=== PATIENT | male | born 1940 | race Caucasian/White ===

== ENCOUNTER 2016-06-12 09:30 | Emergency (ER) | payer MEDICARE, OTHER ==
[~2016-06-12 09:30] MED LIST: APIX5TAB PO; BUME1TAB26 PO; DIGO0.25 PO; DILT1CAP9; FERR325T PO; FLUT1INH INH; GLIP5TAB8 PO; IPRA1POW8 NEB; LEVA750T PO; LEVEMIR SQ; LEVO25TA4 PO; LORA-392 PO; LOSA25TA PO; MULT-135 PO; NEUR300C PO; NOVOLOGP2 SQ; PENT400T19 PO; POTA-243 PO; PRED10PA2 PO; TAMS0.4C4 PO; ZOCO40TA PO
--- NOTE | 2016-06-12 10:05 | PD ---
HPI Chief Complaint: cardiac arrest Time Seen by Provider: 09:49 Travel History International Travel<30 days: No Contact w/Intl Traveler<30days: No Traveled to known affect area: No History of Present Illness HPI 75-year-old male came to the emergency room brought by EMS after a witnessed arrest in front of the paramedics. As per the paramedics patient was on the toilet when he was not feeling good. His called 911 thinking he might be having a stroke. When the fire department arrived patient was sitting on the toilet and said he wasn't feeling well. He appeared very pale and diaphoretic. Soon after he collapsed and lost his pulse in front of the fire paramedics. They initiated CPR and intubated him with a Combitube. Patient has received 3 rounds of epinephrine prior to coming to the ER. As per them patient continued to be in PEA with no pulse. Patient has significant medical problems including heart issues. He brought his medication list which contains at least 20 pills which include diabetic medications heart medications and blood pressure pills. As per the he has been sick lately. Patient obviously was unable to give any history. All the history was obtained from the paramedics. There was no family member available when the patient arrived. Patient lost his pulse at 9: 05 AM as per the paramedics. His blood sugar as per the paramedics was 129. 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) Diabetes: Yes Diminished Hearing: No Endocrine: Yes Gastrointestinal Disorders: Yes GERD: No Glaucoma: No Genitourinary: No Headaches: Yes Hepatitis: No Hiatal Hernia: No Hypertension: Yes Immune Disorder: No Implanted Vascular Access Dvce: Yes Kidney Stones: No Musculoskeletal: Yes Neurologic: Yes Psychiatric: No Reproductive: No Respiratory: Yes Immunizations Current: Yes Migraines: Yes Myocardial Infarction: No Renal Failure: No Seizures: No Sickle Cell Disease: No Sleep Apnea: No Thyroid Disease: Yes Ulcer: No Past Surgical History Abdominal Surgery: Yes (CHOLECYSTECTOMY) AICD: No Appendectomy: No Arteriovenous Shunt: No Cardiac Surgery: Yes (PACEMAKER ) Cholecystectomy: Yes Ear Surgery: No Endocrine Surgery: No Eye Surgery: Yes (CATARACT REMOVAL BOTH EYES) Genitourinary Surgery: No Gynecologic Surgery: No Insulin Pump: No Joint Replacement: Yes (RIGHT KNEE, RT HIP) Oral Surgery: No 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 Reported Meds & Prescriptions Reported Meds & Active Scripts Active Novolog Inj (Insulin Aspart) 1,000 Unit/10 Ml Vial 12 Units SQ TIDAC 30 Days Levemir Inj (Insulin Detemir) 1,000 unit/ 10 ML Vial 45 Units SQ HS 30 Days Do not mix with any other Insulin. Prednisone (48) 10 mg tab Dose Pack (Prednisone) 10 Mg Dspk 10 Mg PO DIRECTED Ativan (Lorazepam) 0.5 Mg Tab 0.5 Mg PO Q8H PRN 30 Days Levaquin (Levofloxacin) 750 Mg Tab 750 Mg PO DAILY 5 Days Eliquis (Apixaban) 5 Mg Tab 5 Mg PO BID 30 Days Reported Ferrous Sulfate 325 Mg Tab 325 Mg PO DAILY Levothyroxine (Levothyroxine Sodium) 25 Mcg Tab 25 Mcg PO DAILY Diltiazem HCl (Diltiazem HCl Extended Release) Unknown Strength Cap Unknown Dose Glipizide 5 Mg Tab 5 Mg PO DAILY Take 30 minutes before a meal Losartan (Losartan Potassium) 25 Mg Tab 25 Mg PO DAILY Zocor (Simvastatin) 40 Mg Tab 40 Mg PO HS Neurontin (Gabapentin) 300 Mg Cap 300 Mg PO HS Klor-Con 10 (Potassium Chloride) 10 Meq Tab 10 Meq PO DAILY Digoxin 0.25 Mg Tab 0.25 Mg PO DAILY Breo Ellipta Inh (Fluticasone/Vilanterol) 100-25 Mcg/Act Inh 1 Puff INH Q12HR Use daily at the same time. Tamsulosin (Tamsulosin HCl) 0.4 Mg Cap 0.4 Mg PO HS Pentoxifylline CR (Pentoxifylline) 400 Mg Tab 400 Mg PO DAILY Multi Vitamin (Multiple Vitamin) 1 Tab Tab 1 Tab PO DAILY Ipratropium [place] 1 Pow Pow 1 Vial NEB Q6HR PRN Bumex (Bumetanide) 1 Mg Tab 1 Mg PO DAILY Narrative Medication List of his home medications reviewed from the nursing note. Review of Systems Except as stated in HPI: all other systems reviewed are Neg Physical Exam Narrative GENERAL: Unresponsive, intubated, CPR in progress SKIN: Focused skin assessment warm/dry. Pale and cold HEAD: Atraumatic. Normocephalic. EYES: Pupils equal and round. No scleral icterus. No injection or drainage. ENT: No nasal bleeding or discharge. Mucous membranes pink and moist. NECK: Trachea midline. No JVD. CARDIOVASCULAR: Absent pulses RESPIRATORY: No spontaneous respirations, assisted ventilation with ET tube and bag GASTROINTESTINAL: Abdomen soft, non-tender, distended. Hepatic and splenic margins not palpable. MUSCULOSKELETAL: No obvious deformities. No clubbing. No cyanosis. No edema. NEUROLOGICAL: GCS of 3, CPR and brought PSYCHIATRIC: Unable to obtain MDM Medical Decision Making Medical Screen Exam Complete: Yes Emergency Medical Condition: Yes Medical Record Reviewed: Yes Differential Diagnosis Cardiac arrest Narrative Course 10 AM high-quality CPR was continued for 15 minutes approximately in the department. Patient was given multiple rounds of medications. Please refer to the nurse's code sheet regarding the medications given and the time. Patient continued to have no pulse. At one point he was showing coarse V. fib on the monitor and he was shocked 3. Eventually the rhythm returned to PEA. He was pronounced at 9:47 AM. I'm still waiting for family member or to show up so that I can speak with them. The nurse is trying to get in touch with his primary care so that a certificate can be signed. In my opinion patient seems to have multiple comorbidities and hence probably a cardiac arrest from his medical condition. 10:30 AM the came and I discussed his current situation and gave her the news about his . She obviously was upset. She had her friend/neighbor with her. The collections manager to get from there after I left. Try to answer all her questions to the best of my ability. Critical Care Narrative Aggregate critical care time was 30 minutes. Time to perform other separately billable procedures was not included in the critical care time. My time did not include minutes spent treating any other patients simultaneously or on activities that did not directly contribute to the patient's treatment. The services I provided to this patient were to treat and/or prevent clinically significant deterioration that could result in: High quality CPR I provided critical care services requiring my management, as noted below: Chart data review, documentation time, medication orders and management, vital sign assessments/reviewing monitor data, ordering and reviewing lab tests, ordering and interpreting/reviewing x-rays and diagnostic studies, care of the patient and discussion of the patient with the admitting physicians. Procedures Procedure Narrative After the risks and benefits were discussed the following procedure was performed: INTUBATION: The patient was put in optimal position for the procedure. Rapid sequence intubation was initiated by me using 0 milligrams of etomidate IV and 0 milligrams of 0 IV. The patient was intubated with a 7-1/2 cuffed endotracheal tube. Tube placement was confirmed by visualization of the tube and balloon passing through the cords, capnometry and subsequent chest x-ray. Breath sounds were equal and well aerated bilaterally postintubation. No breath sounds over stomach. Patient tolerated procedure well. EKG Prior to Arrival: No Diagnosis Primary Impression: Cardiorespiratory arrest Additional Impression: Disposition: 20 Condition: Rigo Casper MD Jun 12, 2016 10:05
== END 2016-06-12 11:27 | disposition expired ==
LOC: PHED 09:30
DX: I46.9 Cardiac arrest, cause unspecified (principal); I10 Essential (primary) hypertension; E11.9 Type 2 diabetes mellitus without complications; E07.9 Disorder of thyroid, unspecified; Z79.4 Long term (current) use of insulin; Z87.39 Personal history of other diseases of the musculoskeletal system and connective tissue; Z86.79 Personal history of other diseases of the circulatory system; Z87.09 Personal history of other diseases of the respiratory system; Z87.19 Personal history of other diseases of the digestive system; Z86.69 Personal history of other diseases of the nervous system and sense organs; Z87.891 Personal history of nicotine dependence
CPT/HCPCS: 31500; 92950